=== PATIENT | female | born 1990 | race Caucasian/White ===

== ENCOUNTER 2024-01-12 12:48 | Emergency (ER) | payer OTHER ==
[2024-01-12 12:54] VITALS: BP 131/73; PULSE 87; RESP 20; TEMP 98.5; BMI 27.4
[2024-01-12] MEDS ORDERED: KETOROLAC TROMETHAMINE 30 MG/1 ML VIAL ONE (14:40)
[2024-01-12] MEDS: KETOROLAC TROMETHAMINE 30 MG/1 ML VIAL IM ONE (14:43)
== END 2024-01-12 15:29 | disposition home or self-care (01) ==
LOC: JERFT 12:48
PROC: 3E0233Z Introduction of Anti-inflammatory into Muscle, Percutaneous Approach (ICD-10-PCS; principal; 2024-01-12)
DX: S93.491A Sprain of other ligament of right ankle, initial encounter (principal); X50.9XXA Other and unspecified overexertion or strenuous movements or postures, initial encounter; Y93.56 Activity, jumping rope
CPT/HCPCS: 73610-TC-RT-FY; 73630-TC-RT-FY; 99284-25

== ENCOUNTER 2025-05-28 23:44 | Emergency (ER) | payer OTHER ==
[2025-05-28 23:50] VITALS: TEMP 97.9; BMI 32.3
[2025-05-29 01:27] VITALS: BP 120/71; PULSE 75; RESP 19
== END 2025-05-29 01:25 | disposition home or self-care (01) ==
LOC: JER 23:44
DX: R07.81 Pleurodynia (principal); R06.02 Shortness of breath; M79.89 Other specified soft tissue disorders
CPT/HCPCS: 71046-TC-FY; 93005; 93010; 93970-TC; 99285-25